=== PATIENT | female | born 1990 | race Caucasian/White ===

== ENCOUNTER 2020-02-26 13:33 | Emergency (ER) | payer OTHER ==
[~2020-02-26] VITALS: Ht 162.6 cm; Wt 75.2 kg
[2020-02-26] MEDS ORDERED: DIAZEPAM 5 MG/ML, 2ML ONE ×2 (14:24→15:17)
[2020-02-26 14:29] LABS: BASOPHILS % (AUTO) 0 % (0-1); EOSINOPHILS % (AUTO) 1 % (1-7); LYMPHOCYTES % (AUTO) 20 % (22-44); MEAN CORPUSCULAR HEMOGLOBIN 30.8 pg (27.0-34.8); MEAN CORPUSCULAR HGB CONC 33.8 g/dL (32.4-35.8); MEAN PLATELET VOLUME 8.7 fL (7.4-10.4); MONOCYTES % (AUTO) 6 % (2-9); NEUTROPHILS % (AUTO) 73 % (42-75); PLATELET COUNT 214 x10^3/uL (130-400); RED BLOOD COUNT 4.34 x10^6/uL (3.82-5.3); RED CELL DISTRIBUTION WIDTH 12.9 % (9.6-15.2)
[2020-02-26] MEDS ORDERED: SODIUM CHLORIDE 0.9% 1,000ML IVBOLUS ONE (14:30)
[2020-02-26] MEDS ORDERED: SODIUM CHLORIDE FLUSH 10ML SYR IVF ONE (14:30)
[2020-02-26] MEDS ORDERED: DIAZEPAM 5 MG/ML, 2ML IV ONE ×2 (14:30→15:30)
[2020-02-26 14:31] VITALS: BP 151/70
[2020-02-26 14:42] LABS: CHLORIDE 112 mmol/L (98-107)
[2020-02-26 14:48] LABS: ANION GAP 7 mmol/L (5-15); CALCIUM 8.2 mg/dL (8.5-10.1); CREATININE 0.73 mg/dL (0.55-1.02)
[2020-02-26 14:55] LABS: MD NO
--- NOTE | 2020-02-26 15:11 | NUR ---
PT STILL EXPEIENCING VERTIGO POST MEDICAION. MADE AWARE. MORE MEDICATION VERBAL ORDERS RECIEVED
== END 2020-02-26 17:22 | disposition home or self-care (01) ==
LOC: ED 15:46
DX: R42 Dizziness and giddiness (principal); H93.19 Tinnitus, unspecified ear
CPT/HCPCS: 36415; 80048; 82040; 85025; 96361; 96374; 96376; 99284; J3360; J7030; 96366; 96372